=== PATIENT | female | born 2000 | race Caucasian/White ===

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

== ENCOUNTER 2022-07-10 19:51 | Emergency (ER) | payer OTHER ==
[2022-07-10 20:10] VITALS: TEMP 98.1; BMI 33.3
[2022-07-10] MEDS ORDERED: ONDANSETRON 4 MG/2 ML VIAL IVPUSH ONE (22:49)
[2022-07-10] MEDS ORDERED: morphine CARPU-JECT 4 MG/1 ML DISP.SYRIN IVPUSH ONE (22:49)
[2022-07-10] MEDS ORDERED: SODIUM CHLORIDE 1,000 ML IV STA (22:49)
[2022-07-10] MEDS ORDERED: ONDANSETRON 4 MG/2 ML VIAL ONE (23:45)
[2022-07-10] MEDS ORDERED: morphine SULFATE 4 MG/ML VIAL ONE (23:45)
[2022-07-11 00:16] LABS: BASO % 0.3 % (0-2.0); EOS % 0.7 % (0-4.5); HEMATOCRIT 40.5 % (32.4-45.2); HEMOGLOBIN 13.3 GM/dL (10.7-15.3); LYMPH % 26.8 % (8-40); MCH 27.4 pg (25.7-33.7); MCHC 32.8 g/dl (32.0-36.0); MEAN CELL VOLUME 83.5 fl (80-96); MEAN PLT VOLUME 8.9 fl (7.5-11.1); MONO % 7.3 % (3.8-10.2); NEUT % 64.9 % (42.8-82.8); PLATELET COUNT 419 10^3/uL (134-434); RBC 4.85 M/mm3 (3.60-5.2); RDW 17.6 % (11.6-15.6); WHITE BLOOD COUNT 11.4 K/mm3 (4.0-10.0)
[2022-07-11 00:17] LABS: HCG,QUALITATIVE URINE Negative
[2022-07-11 00:18] LABS: EPI CELLS >36 /uL (0-25.1); HYALINE CASTS 8 /uL (0-3.1); URINE APPEARANCE TURBID; URINE BILIRUBIN 1+ (NEGATIVE); URINE COLOR ORANGE; URINE GLUCOSE (UA) NEGATIVE (NEGATIVE); URINE KETONE TRACE (NEGATIVE); URINE LEUK ESTERASE 2+ (NEGATIVE); URINE NITRITE NEGATIVE (NEGATIVE); URINE PROTEIN 2+ (NEGATIVE); URINE UROBILINOGEN 0.2 mg/dL (0.2-1.0); URINE WBC 207 /uL (0-25.8)
[2022-07-11 00:31] LABS: CALCIUM 10.2 mg/dL (8.5-10.1)
[2022-07-11 00:32] LABS: ALBUMIN 4.2 g/dl (3.4-5.0); BLOOD UREA NITROGEN 11.8 mg/dL (7-18)
[2022-07-11 00:36] LABS: CREATININE 0.9 mg/dL (0.55-1.3); TOT PROT 9.3 g/dl (6.4-8.2)
[2022-07-11 00:37] LABS: BILIRUBIN,TOTAL 0.8 mg/dL (0.2-1)
[2022-07-11] MEDS ORDERED: KETOROLAC TROMETHAMINE 30 MG/1 ML VIAL IVPUSH ONE (01:12)
[2022-07-11] MEDS ORDERED: CEFTRIAXONE 1,000 MG in DEXTROSE 5%-WATER - 50 ML IVPB ONE (01:14)
[2022-07-11] MEDS ORDERED: KETOROLAC TROMETHAMINE 30 MG/1 ML VIAL ONE (01:33)
[2022-07-11] MEDS ORDERED: CEFTRIAXONE 1 GM/50 ML BAG ONE (01:46)
[2022-07-11 02:54] VITALS: BP 122/71; PULSE 71; RESP 14
== END 2022-07-11 02:57 | disposition home or self-care (01) ==
LOC: JER 19:51
PROC: 3E033GC Introduction of Other Therapeutic Substance into Peripheral Vein, Percutaneous Approach (ICD-10-PCS; principal; 2022-07-10)
DX: N23 Unspecified renal colic (principal)
CPT/HCPCS: 36415; 74176-TC; 80053; 81003; 84703; 85025; 87077; 87086; 99285-25

== ENCOUNTER 2023-08-16 13:51 | Emergency (ER) | payer OTHER ==
[2023-08-16 14:08] VITALS: BP 116/79; PULSE 110; RESP 18; TEMP 98.8; BMI 29.1
== END 2023-08-16 14:48 | disposition home or self-care (01) ==
LOC: JERFT 13:51
DX: H92.03 Otalgia, bilateral (principal); H60.503 Unspecified acute noninfective otitis externa, bilateral
CPT/HCPCS: 99283-25

== ENCOUNTER 2024-04-04 23:47 | Emergency (ER) | payer OTHER ==
[2024-04-04 23:57] VITALS: RESP 20; TEMP 99; BMI 27.9
[2024-04-05 00:31] VITALS: BP 111/65; PULSE 121
[2024-04-05] MEDS ORDERED: ACETAMINOPHEN 325 MG TABLET (FP) ONE (00:38)
[2024-04-05] MEDS: ACETAMINOPHEN 500 MG TABLET (FP) PO ONE (00:40)
[2024-04-05] MEDS ORDERED: LIDOCAINE 5% TOPICAL PATCH ONE (00:54)
[2024-04-05] MEDS: LIDOCAINE 5% TOPICAL PATCH TP ONE (00:57)
[2024-04-05 01:09] LABS: EPI CELLS 12 /uL (0-25.1); HYALINE CASTS 1 /uL (0-3.1); PH,URINE 5.5 (5.0-8.0); URINE APPEARANCE CLEAR; URINE BACTERIA 37 /uL (0-1359); URINE BILIRUBIN NEGATIVE (NEGATIVE); URINE COLOR YELLOW; URINE GLUCOSE (UA) NEGATIVE (NEGATIVE); URINE KETONE NEGATIVE (NEGATIVE); URINE LEUK ESTERASE TRACE (NEGATIVE); URINE NITRITE NEGATIVE (NEGATIVE); URINE PROTEIN TRACE (NEGATIVE); URINE RBC 58 /uL (0-23.9); URINE UROBILINOGEN 0.2 mg/dL (0.2-1.0); URINE WBC 25 /uL (0-25.8)
[2024-04-05] MEDS ORDERED: METHOCARBAMOL 500 MG TABLET ONE (01:10)
[2024-04-05] MEDS ORDERED: KETOROLAC TROMETHAMINE 30 MG/1 ML VIAL ONE (01:10)
[2024-04-05] MEDS: METHOCARBAMOL 500 MG TABLET PO ONE (01:15)
[2024-04-05] MEDS: KETOROLAC TROMETHAMINE 30 MG/1 ML VIAL IM ONE (01:15)
[2024-04-05] MEDS: KETOROLAC TROMETHAMINE 15 MG/ML VIAL IVPUSH ONE (01:16)
[2024-04-05 01:21] LABS: HCG,QUALITATIVE URINE Negative
[2024-04-05] MEDS ORDERED: LIDOCAINE PATCH REMOVAL MC SCH (22:00)
== END 2024-04-05 02:42 | disposition home or self-care (01) ==
LOC: JER 23:47
PROC: 3E0233Z Introduction of Anti-inflammatory into Muscle, Percutaneous Approach (ICD-10-PCS; principal; 2024-04-05)
DX: M54.41 Lumbago with sciatica, right side (principal)
CPT/HCPCS: 74176-TC; 81003; 84703; 99284-25